=== PATIENT | female | born 2000 | race Hispanic/Latino ===

== ENCOUNTER → 2024-01-01 13:43 | Outpatient (REF) | payer OTHER, SELFPAY | LOC: PNTC 13:43 | PROVIDERS: ATTENDING PHYSICIAN Obstetrics & Gynecology | DX: O98.519 Other viral diseases complicating pregnancy, unspecified trimester (principal); O99.210 Obesity complicating pregnancy, unspecified trimester | CPT/HCPCS: 76816 ==

== ENCOUNTER → 2024-01-22 09:45 | Outpatient (REF) | payer OTHER, SELFPAY | LOC: PNTC 09:45 | PROVIDERS: ATTENDING PHYSICIAN Obstetrics & Gynecology | DX: O99.210 Obesity complicating pregnancy, unspecified trimester (principal); O98.519 Other viral diseases complicating pregnancy, unspecified trimester | CPT/HCPCS: 76816 ==

== ENCOUNTER → 2024-02-05 10:34 | Outpatient (REF) | payer OTHER, SELFPAY | LOC: PNTC 10:34 | PROVIDERS: ATTENDING PHYSICIAN Obstetrics & Gynecology | DX: O98.519 Other viral diseases complicating pregnancy, unspecified trimester (principal); O99.210 Obesity complicating pregnancy, unspecified trimester | CPT/HCPCS: 59025; 76815 ==

== ENCOUNTER → 2024-02-12 09:59 | Outpatient (REF) | payer OTHER, SELFPAY | LOC: PNTC 09:59 | PROVIDERS: ATTENDING PHYSICIAN Obstetrics & Gynecology | DX: O98.519 Other viral diseases complicating pregnancy, unspecified trimester (principal); U07.1 COVID-19; O99.210 Obesity complicating pregnancy, unspecified trimester | CPT/HCPCS: 59025; 76818 ==

== ENCOUNTER → 2024-02-19 11:14 | Outpatient (REF) | payer OTHER, SELFPAY | LOC: PNTC 11:14 | PROVIDERS: ATTENDING PHYSICIAN Obstetrics & Gynecology | DX: O99.210 Obesity complicating pregnancy, unspecified trimester (principal); O98.519 Other viral diseases complicating pregnancy, unspecified trimester; U07.1 COVID-19 | CPT/HCPCS: 59025; 76816 ==

== ENCOUNTER → 2024-02-26 10:29 | Outpatient (REF) | payer OTHER, SELFPAY | LOC: PNTC 10:29 | PROVIDERS: ATTENDING PHYSICIAN Obstetrics & Gynecology | DX: O98.519 Other viral diseases complicating pregnancy, unspecified trimester (principal); U07.1 COVID-19; O99.210 Obesity complicating pregnancy, unspecified trimester | CPT/HCPCS: 59025; 76815 ==

== ENCOUNTER → 2024-03-03 15:42 | Outpatient (REF) | payer OTHER, SELFPAY | LOC: PNTC 15:42 | PROVIDERS: ATTENDING PHYSICIAN Obstetrics & Gynecology | DX: O99.210 Obesity complicating pregnancy, unspecified trimester (principal); O98.519 Other viral diseases complicating pregnancy, unspecified trimester; U07.1 COVID-19 | CPT/HCPCS: 59025; 76815 ==

== ENCOUNTER 2024-03-09 06:10 | Inpatient (IN) | payer OTHER, SELFPAY ==
[2024-03-09 06:17] VITALS: BMI 39.2
[2024-03-09 06:25] VITALS: BP 131/93
[2024-03-09] MEDS: LR 1000 IV ×3 (06:45→10:01)
[2024-03-09 06:51] LABS: % Basophils 0.2 % (0-2); % Eosinophils 0.8 % (0-6); % Immature Granulocytes 0.5 % (0-0.5); % Lymphocytes 25.8 % (20.5-51.1); % Monocytes 5.2 % (1.7-9.3); % Neutrophils 67.5 % (42.2-75.2); Absolute Eosinophils 0.1 10^3/uL (0-0.7); Absolute Immature Granulocytes 0.1 10^3/uL (0-0.05); Absolute Lymphocytes 2.8 10^3/uL (1.2-3.4); Absolute Monocytes 0.6 10^3/uL (0.1-0.6); Absolute Neutrophils 7.3 10^3/uL (1.4-6.5); Hematocrit 38.1 % (37.0-47.0); Hemoglobin 12.8 g/dL (12.0-16.0); Mean Corp Hgb Conc. 33.6 g/dL (33.0-37.0); Mean Corpuscular Hgb 27.9 pg (27.0-31.0); Mean Corpuscular Volume 83.2 fL (81.0-99.0); Mean Platelet Volume 10.5 fL (7.4-10.4); Nucleated Red Blood Cells % 0 %; Platelet Count 217 10^3/uL (130-400); Red Blood Cell Count 4.58 10^6/uL (4.20-5.40); Red Cell Dist. Width 13.4 % (11.5-14.5); White Blood Cell Count 10.9 10^3/uL (4.8-10.8)
[2024-03-09] MEDS: PENICILLIN 110 UNITS IV (07:20)
[2024-03-09] MEDS: PENICILLIN 55 UNITS IV (10:01)
[2024-03-09] MEDS: PITOCIN 30 UNITS/NSS 500 ML IV (12:00)
[2024-03-09] MEDS: TYLENOL 650 MG PO ×2 (12:44→18:20)
[2024-03-09] MEDS: MOTRIN 600 MG PO ×2 (12:44→20:23)
[2024-03-09] MEDS: METHERGINE INJECTION 0.200000000000000011 MG IM (14:19)
[2024-03-10 05:21] LABS: Hemoglobin 10.8 g/dL (12.0-16.0)
--- NOTE | 2024-03-11 12:14 | CM ---
Met with new mother Estelle at bedside
Mom lives with her mother, brother and 2 yo daughter Ella at listed address. FOB Rashel Ryder is involved.
Mom has named Maggie Soler
Mom reports she has all supplies for infant including car seat, crib, pack and play, clothing
Mom plans to breast feed - has breast pump
Mom plans to use [facility] for pediatric care
Mom offered info on the WIC program - declined
Given pamphlet on Maternal Child VN program
[2024-03-11 14:27] LABS: Syphilis/T. pallidum Ab Reflex Negative (Negative)
== END 2024-03-11 13:45 | disposition home or self-care (01) | DRG 807 ==
LOC: LDRP 06:10
PROVIDERS: Obstetrics & Gynecology; ADMITTING PHYSICIAN Obstetrics & Gynecology; FAMILY PHYSICIAN Family Medicine
PROC: 10E0XZZ Delivery of Products of Conception, External Approach (ICD-10-PCS; 2024-03-09)
PROC: 6A550ZT Pheresis of Cord Blood Stem Cells, Single (ICD-10-PCS; 2024-03-09)
DX: O99.284 Endocrine, nutritional and metabolic diseases complicating childbirth (principal); Z37.0 Single live birth; E28.2 Polycystic ovarian syndrome; Z3A.39 39 weeks gestation of pregnancy; O99.02 Anemia complicating childbirth; D64.9 Anemia, unspecified; O99.214 Obesity complicating childbirth; O99.344 Other mental disorders complicating childbirth; F32.A Depression, unspecified; F41.9 Anxiety disorder, unspecified; I44.0 Atrioventricular block, first degree; O99.824 Streptococcus B carrier state complicating childbirth; O99.334 Smoking (tobacco) complicating childbirth; F17.290 Nicotine dependence, other tobacco product, uncomplicated
CPT/HCPCS: 36415; 85014; 85018; 85025; 86780; 86850; 86900; 86901; 99406

== ENCOUNTER → 2024-08-10 08:45 | Outpatient (REF) | payer OTHER, SELFPAY | LOC: RCS 08:45 | PROVIDERS: ATTENDING PHYSICIAN Internal Medicine Cardiovascular Disease; FAMILY PHYSICIAN Nurse Practitioner Primary Care | DX: Z76.89 Persons encountering health services in other specified circumstances (principal) | CPT/HCPCS: 93306 ==